=== PATIENT | female | born 1950 | race Caucasian/White ===

== ENCOUNTER → 2023-04-23 13:19 | Outpatient (REF) | payer MEDICARE, BC, SELFPAY ==
[2023-04-23 17:16] LABS: Free T4 1.26 ng/dl (0.78-2.19)
[2023-04-23 17:30] LABS: TSH 1.73 uIU/ml (0.47-4.68)
== END ==
LOC: HWLAB 13:19
PROVIDERS: ATTENDING PHYSICIAN Family Medicine
DX: E03.9 Hypothyroidism, unspecified (principal)
CPT/HCPCS: 36415; 84439; 84443

== ENCOUNTER → 2023-12-21 08:30 | Outpatient (REF) | payer MEDICARE, BC, SELFPAY ==
[2023-12-21 09:52] LABS: % Basophils 0.8 % (0-2); % Eosinophils 4.1 % (0-6); % Immature Granulocytes 0.2 % (0-0.5); % Lymphocytes 33.1 % (20.5-51.1); % Monocytes 10.4 % (1.7-9.3); % Neutrophils 51.4 % (42.2-75.2); Absolute Eosinophils 0.2 10^3/uL (0-0.7); Absolute Lymphocytes 1.6 10^3/uL (1.2-3.4); Absolute Monocytes 0.5 10^3/uL (0.1-0.6); Absolute Neutrophils 2.5 10^3/uL (1.4-6.5); Hematocrit 41.5 % (37.0-47.0); Hemoglobin 13.8 g/dL (12.0-16.0); Mean Corp Hgb Conc. 33.3 g/dL (33.0-37.0); Mean Corpuscular Volume 90.2 fL (81.0-99.0); Nucleated Red Blood Cells % 0 %; Platelet Count 244 10^3/uL (130-400); Red Cell Dist. Width 13.2 % (11.5-14.5); White Blood Cell Count 4.9 10^3/uL (4.8-10.8)
[2023-12-21 10:26] LABS: Urine Albumin Negative (Neg - Trace); Urine Bilirubin Negative (Negative); Urine Character Clear (Clear); Urine Color Yellow; Urine Glucose Negative (Negative); Urine Ketone Negative (Negative); Urine Leukocyte 1+ (Negative); Urine Nitrite Negative (Negative); Urine Occult Blood Negative (Negative); Urine Urobilinogen Negative (Neg - 1+)
[2023-12-21 10:40] LABS: ALT (SGPT) 22 U/L (0-35); AST (SGOT) 24 U/L (14-36); Albumin 4.1 g/dl (3.5-5.0); Alkaline Phosphatase 40 U/L (38-126); Blood Urea Nitrogen 26 mg/dl (7-17); Calcium 9.4 mg/dl (8.4-10.2); Carbon Dioxide 30 mmol/L (22-30); Chloride 103 mmol/L (98-107); Glucose 87 mg/dl (70-99); HDL Cholesterol 77 mg/dl; LDL Cholesterol, Calculated 136 mg/dl; Potassium 4.6 mmol/L (3.5-5.1); Sodium 142 mmol/L (135-145); Total Bilirubin 0.5 mg/dl (0.2-1.3); Total Cholesterol 230 mg/dl (50-199); Total Protein 6.7 g/dl (6.3-8.2); Triglyceride 88 mg/dl (10-149); Very Low Density Lipoprotein 17 mg/dl (0-30); eGFR > 60.00
[2023-12-21 10:51] LABS: Urine Urothelial Cell 0-2 /LPF (FEW)
[2023-12-21 10:52] LABS: Urine Bacteria Few (Negative)
[2023-12-21 10:58] LABS: Free T4 1.28 ng/dl (0.78-2.19); Vitamin D, 25-OH*** 62.8 ng/mL (30-80)
[2023-12-21 11:11] LABS: TSH 0.82 uIU/ml (0.47-4.68)
== END ==
LOC: HWLAB 08:30
PROVIDERS: ATTENDING PHYSICIAN Family Medicine
DX: Z00.00 Encounter for general adult medical examination without abnormal findings (principal); Z79.899 Other long term (current) drug therapy; R79.9 Abnormal finding of blood chemistry, unspecified; E03.9 Hypothyroidism, unspecified; R82.90 Unspecified abnormal findings in urine; Z87.440 Personal history of urinary (tract) infections; E78.00 Pure hypercholesterolemia, unspecified
CPT/HCPCS: 36415; 80053; 80061; 81003; 81015; 82306; 84439; 84443; 85025

== ENCOUNTER → 2023-12-24 12:53 | Outpatient (REF) | payer MEDICARE, BC, SELFPAY | LOC: WDC 12:53 | PROVIDERS: ATTENDING PHYSICIAN Obstetrics & Gynecology Gynecology; FAMILY PHYSICIAN Family Medicine | DX: Z12.31 Encounter for screening mammogram for malignant neoplasm of breast (principal) | CPT/HCPCS: 77063; 77067 ==

== ENCOUNTER → 2024-03-16 09:54 | Outpatient (REF) | payer MEDICARE, BC, SELFPAY | LOC: HWRAD 09:54 | PROVIDERS: ATTENDING PHYSICIAN Nurse Practitioner Family | DX: R51.9 Headache, unspecified (principal) | CPT/HCPCS: 70450 ==

== ENCOUNTER → 2024-04-01 11:21 | Outpatient (REF) | payer MEDICARE, BC, SELFPAY | LOC: RAD 11:21 | PROVIDERS: ATTENDING PHYSICIAN Family Medicine | DX: M48.061 Spinal stenosis, lumbar region without neurogenic claudication (principal); M81.0 Age-related osteoporosis without current pathological fracture | CPT/HCPCS: 77080 ==

== ENCOUNTER 2024-08-17 07:33 | Outpatient (RCR) | payer MEDICARE, BC, SELFPAY | END 2024-08-17 23:59 | disposition home or self-care (01) | LOC: RPT 07:33 | PROVIDERS: ATTENDING PHYSICIAN Nurse Practitioner Adult Health; FAMILY PHYSICIAN Family Medicine | DX: N39.3 Stress incontinence (female) (male) (principal); Z73.6 Limitation of activities due to disability; M62.838 Other muscle spasm; M62.81 Muscle weakness (generalized) | CPT/HCPCS: 97161; 97530 ==

== ENCOUNTER → 2024-08-24 09:23 | Outpatient (REF) | payer MEDICARE, BC, SELFPAY ==
[2024-08-24 12:42] LABS: ALT (SGPT) 22 U/L (0-35); AST (SGOT) 20 U/L (14-36); Albumin 4.0 g/dl (3.5-5.0); Alkaline Phosphatase 46 U/L (38-126); Blood Urea Nitrogen 21 mg/dl (7-17); Calcium 9.0 mg/dl (8.4-10.2); Carbon Dioxide 27 mmol/L (22-30); Chloride 106 mmol/L (98-107); Glucose 87 mg/dl (70-99); Potassium 4.5 mmol/L (3.5-5.1); Sodium 141 mmol/L (135-145); Total Protein 6.5 g/dl (6.3-8.2); eGFR > 60.00
[2024-08-24 13:04] LABS: Hematocrit 42.6 % (37.0-47.0); Hemoglobin 14.3 g/dL (12.0-16.0); Mean Corp Hgb Conc. 33.6 g/dL (33.0-37.0); Mean Corpuscular Volume 90.4 fL (81.0-99.0); Nucleated Red Blood Cells % 0 %; Platelet Count 213 10^3/uL (130-400); Red Cell Dist. Width 13.0 % (11.5-14.5)
== END ==
LOC: HWLAB 09:23
PROVIDERS: ATTENDING PHYSICIAN Internal Medicine Transplant Hepatology; FAMILY PHYSICIAN Family Medicine
DX: K76.0 Fatty (change of) liver, not elsewhere classified (principal)
CPT/HCPCS: 36415; 80053; 85025

== ENCOUNTER 2024-09-05 13:09 | Outpatient (RCR) | payer MEDICARE, BC, SELFPAY | END 2024-09-05 23:59 | disposition home or self-care (01) | LOC: RPT 13:09 | PROVIDERS: ATTENDING PHYSICIAN Nurse Practitioner Adult Health; FAMILY PHYSICIAN Family Medicine | DX: N39.3 Stress incontinence (female) (male) (principal); Z73.6 Limitation of activities due to disability; M62.838 Other muscle spasm; M62.81 Muscle weakness (generalized) | CPT/HCPCS: 97110 ==

== ENCOUNTER 2024-09-23 09:09 | Outpatient (RCR) | payer MEDICARE, BC, SELFPAY | END 2024-09-23 23:59 | disposition home or self-care (01) | LOC: RPT 09:09 | PROVIDERS: ATTENDING PHYSICIAN Nurse Practitioner Adult Health; FAMILY PHYSICIAN Family Medicine | DX: N39.3 Stress incontinence (female) (male) (principal); Z73.6 Limitation of activities due to disability; M62.838 Other muscle spasm; M62.81 Muscle weakness (generalized) | CPT/HCPCS: 97110; 97112; 97530 ==

== ENCOUNTER → 2024-11-03 11:22 | Outpatient (REF) | payer MEDICARE, BC, SELFPAY ==
[2024-11-03 16:14] LABS: Urine Character Clear (Clear)
[2024-11-03 16:26] LABS: Urine White Cell 60-70 /HPF (0-5)
== END ==
LOC: HWLAB 11:22
PROVIDERS: ATTENDING PHYSICIAN Family Medicine
DX: N39.0 Urinary tract infection, site not specified (principal); R35.0 Frequency of micturition
CPT/HCPCS: 81003; 81015; 87077; 87086; 87186

== ENCOUNTER → 2024-12-26 13:28 | Outpatient (REF) | payer MEDICARE, BC, SELFPAY ==
[2024-12-26 15:11] LABS: Urine Character Cloudy (Clear)
[2024-12-26 15:24] LABS: Urine Red Blood Cell 16-20 /HPF (0-2); Urine Squamous Cell 0-2 /LPF (Few)
[2024-12-26 15:25] LABS: Urine White Cell >100 /HPF (0-5)
== END ==
LOC: HWLAB 13:28
PROVIDERS: ATTENDING PHYSICIAN Family Medicine
DX: N39.0 Urinary tract infection, site not specified (principal)
CPT/HCPCS: 81003; 81015; 87077; 87086; 87186

== ENCOUNTER → 2024-12-28 11:28 | Outpatient (REF) | payer MEDICARE, BC, SELFPAY | LOC: WDC 11:28 | PROVIDERS: ATTENDING PHYSICIAN Obstetrics & Gynecology Gynecology; FAMILY PHYSICIAN Family Medicine | DX: Z12.31 Encounter for screening mammogram for malignant neoplasm of breast (principal) | CPT/HCPCS: 77063; 77067 ==

== ENCOUNTER → 2025-01-16 09:46 | Outpatient (REF) | payer MEDICARE, BC, SELFPAY ==
[2025-01-16 11:30] LABS: Hematocrit 42.8 % (37.0-47.0); Hemoglobin 14.1 g/dL (12.0-16.0); Mean Corp Hgb Conc. 32.9 g/dL (33.0-37.0); Mean Corpuscular Volume 92.4 fL (81.0-99.0); Nucleated Red Blood Cells % 0 %; Platelet Count 271 10^3/uL (130-400); Red Cell Dist. Width 13.3 % (11.5-14.5)
[2025-01-16 11:44] LABS: Urine Character Clear (Clear)
[2025-01-16 12:00] LABS: ALT (SGPT) 25 U/L (0-35); AST (SGOT) 32 U/L (14-36); Albumin 4.1 g/dl (3.5-5.0); Alkaline Phosphatase 47 U/L (38-126); Blood Urea Nitrogen 17 mg/dl (7-17); Calcium 9.1 mg/dl (8.4-10.2); Carbon Dioxide 30 mmol/L (22-30); Chloride 106 mmol/L (98-107); Glucose 82 mg/dl (70-99); HDL Cholesterol 63 mg/dl; LDL Cholesterol, Calculated 131 mg/dl; Potassium 4.6 mmol/L (3.5-5.1); Sodium 138 mmol/L (135-145); Total Protein 6.8 g/dl (6.3-8.2); Very Low Density Lipoprotein 21 mg/dl (0-30); eGFR > 60.00
[2025-01-16 12:10] LABS: Glycohemoglobin (HgbA1c) 5.6 % (4.0-5.9)
[2025-01-16 12:21] LABS: Urine Red Blood Cell 0-2 /HPF (0-2)
[2025-01-16 12:29] LABS: TSH 1.91 uIU/ml (0.47-4.68)
== END ==
LOC: REG 09:46
PROVIDERS: ATTENDING PHYSICIAN Family Medicine
DX: N39.0 Urinary tract infection, site not specified (principal); E03.9 Hypothyroidism, unspecified; K21.9 Gastro-esophageal reflux disease without esophagitis; K76.0 Fatty (change of) liver, not elsewhere classified; E78.00 Pure hypercholesterolemia, unspecified; R73.03 Prediabetes
CPT/HCPCS: 36415; 80053; 80061; 81003; 81015; 83036; 84439; 84443; 85025

== ENCOUNTER 2025-01-17 22:43 | Emergency (ER) | payer MEDICARE, BC, SELFPAY ==
[2025-01-17 22:54] VITALS: BP 181/86
[2025-01-17 23:20] LABS: Hematocrit 41.3 % (37.0-47.0); Hemoglobin 13.5 g/dL (12.0-16.0); Mean Corp Hgb Conc. 32.7 g/dL (33.0-37.0); Mean Corpuscular Volume 92.4 fL (81.0-99.0); Nucleated Red Blood Cells % 0 %; Platelet Count 244 10^3/uL (130-400); Red Cell Dist. Width 13.2 % (11.5-14.5)
[2025-01-17 23:37] LABS: ALT (SGPT) 29 U/L (0-35); AST (SGOT) 36 U/L (14-36); Albumin 4.0 g/dl (3.5-5.0); Alkaline Phosphatase 45 U/L (38-126); Blood Urea Nitrogen 24 mg/dl (7-17); Calcium 8.9 mg/dl (8.4-10.2); Carbon Dioxide 28 mmol/L (22-30); Chloride 105 mmol/L (98-107); Glucose 97 mg/dl (70-99); Potassium 4.1 mmol/L (3.5-5.1); Sodium 138 mmol/L (135-145); Total Protein 6.6 g/dl (6.3-8.2); eGFR > 60.00
[2025-01-17 23:39] VITALS: BP 156/64
[2025-01-17 23:46] LABS: Troponin I < 0.012 ng/ml
[2025-01-18] VITALS: BP 143/68
[2025-01-18 01:00] VITALS: BP 143/75
[2025-01-18 02:05] VITALS: BP 142/59
--- NOTE | 2025-01-18 02:11 | ED.GENMED ---
History of Present Illness
General
Chief Complaint: Blood Pressure Problem
Source: patient and spouse
Exam Limitations: none
Time Seen by Provider: 01/18/25 00:38
Nursing documentation reviewed up to this point in time: agreed with
History of Present Illness
History of Present Illness:
Patient presents to ED secondary to persistent hypertension along with achy feeling in the back of her head over the past 2 days. Patient was evaluated at PCPs office last week for annual physical exam. During the office visit, patient's blood
pressure was noted to be mildly elevated. Patient was advised to keep checking her blood pressure at home by her primary care physician. Patient does not have a history of hypertension. Over the past 3 days, whenever her blood pressure was
checked, it was noted to be elevated, with systolic blood pressure greater than 170. Denies dizziness. Denies chest pain or shortness of breath. Denies diaphoresis. Denies blurred vision. Denies loss of sensation or weakness. Denies recent
change in medications or diet. Patient does state that she is under significant stress at home. Denies recent weight changes.
Past History
Past History
ED Past Medical History: Cancer
ED Past Surgical History: Gynecological
Social History
Personal:
Review of Systems
Review of Systems
Allergies reviewed?: Yes
All Other Systems: ROS reviewed and negative except as documented in HPI and ROS
Constitutional: Reports no symptoms
EENT: Reports no symptoms
Respiratory: Denies trouble breathing
Cardiac: Reports no symptoms; Denies chest pain or diaphoresis
ABD/GI: Reports no symptoms; Denies nausea or vomiting
Musculoskeletal: Reports no symptoms
Skin: Reports no symptoms
Neurological: Reports headache; Denies dizzy or weakness
Phy Exam
Physical Exam
Physical Exam:
Physical Exam
General: no apparent distress, not acutely ill. afebrile
Head: nc/at. eomi
Neck: supple. no meningeal signs.
Heart: s1/s2 regular rate and rhythm
Lungs: no acute respiratory distress. clear bilaterally
Abdomen: normal bowel sounds. not tender.
Neuro: alert and oriented x 3. no focal neurological deficits
Skin: no rash
Psychiatric: well kept. interactive and cooperative
Extremities: no edema. no calf tenderness.
Course
Orders/Labs/Results
Orders:
Orders
01/17/25 23:02
Electrocardiogram (*1) Urgent
Reason for Study: Hypertension, Benign
Cardiology Consult: Unknown
EKG- Treatment ONCE
01/17/25 23:14
Complete Blood Count/With Diff Urgent
Comprehensive Metabolic Panel Urgent
Troponin I Urgent
01/18/25 01:24
CT Head W/o Iv Contrast Urgent
Comment:
Reason For Exam: headache with hypertension
Abnormal Lab Results
01/17/25
23:14
MCHC 32.7 L g/dL
(33.0-37.0)
Absolute Monos (auto) 0.7 H 10^3/uL
(0.1-0.6)
Monocytes % 12.4 H %
(1.7-9.3)
Eosinophils % 7.0 H %
(0-6)
BUN 24 H mg/dl
(7-17)
01/17/25 23:14
01/17/25 23:14
Vital Signs
Initial and Last Documented VS:
Initial Vital Signs
Temp Pulse Resp BP Pulse Ox
97.6 F 69 20 181/86 99
01/17/25 22:54 01/17/25 22:54 01/17/25 22:54 01/17/25 22:54 01/17/25 22:54
Last Documented Vital Signs
Temp Pulse Resp BP Pulse Ox
97.6 F 59 22 142/59 95
01/17/25 22:54 01/18/25 01:35 01/18/25 01:35 01/18/25 02:05 01/18/25 02:11
MDM/Problems Addressed
MDM/Problems Addressed:
Patient with an unremarkable workup in ED, including blood work and CT head. Initial mild hypertension improved during observation without treatment. Discussed treatment options with patient, including initiation of antihypertensive medication.
At this time, patient will keep daily log of her blood pressure, but requesting prescription for low-dose of blood pressure medication, just in case her blood pressure remains elevated at home, which I thought was reasonable. As such, prescription
for 2.5 mg amlodipine was prescribed for patient prior to discharge. Patient will continue to keep daily log of blood blood pressure and for will follow-up with her PCP in 1 to 2 weeks for reevaluation.
*Pulse Oximetry
SaO2: 95
Oxygen Mode of Delivery: Room air
Patient hypoxic: no
*Critical Care Note
Total Time (30-74mins, 75-104mins- exclusive of procedures): Not Applicable
ED Attending Note
-
Portions of this chart may have been created with voice recognition software.� Occasional wrong word or��sound alike� substitutions may have occurred due to the inherent limitations of voice recognition software.
Discharge Plan
Departure
Patient Disposition: Home (Routine Discharge)
Date of Disposition: 01/18/25
Time of Disposition: 02:11
Patient with high blood pressure during this ER visit?: Yes
Condition: Good
Discharge Problem:
Hypertension
Instructions: High Blood Pressure (DC)
Prescriptions:
New
amlodipine [Norvasc] 2.5 mg tablet
2.5 mg PO DAILY Qty: 30 0RF
No Action
levothyroxine [Synthroid] 88 mcg Tablet
88 mcg PO DAILY
Vitamin D (with calcium)
1 tab PO DAILY
Referrals:
Karen Garcia DO [Family Provider, Family Practice]
Activity Restrictions/Additional Instructions:
As discussed, please follow-up with your primary care doctor for reevaluation in 1 to 2 weeks.
Interventions
Interventions:
*Risk Screen - Suicide Last Done: 01/17/25 22:54
*General Assessment Last Done: 01/17/25 22:54
*Neglect/Abuse Screening Last Done: 01/17/25 22:54
*ED- Fall Risk Assessment Last Done: 01/17/25 22:54
*ED COVID-19 Vaccine History Last Done: 01/17/25 22:54
*ED Influenza Vaccine History Last Done: 01/17/25 22:54
*Nursing Disposition Last Done: 01/18/25 02:17
ED- Cardiac Assessment Last Done: 01/17/25 23:42
ED- Neurological Assessment Last Done: 01/17/25 23:42
ED- Pulmonary Assessment Last Done: 01/17/25 23:42
Discharge Date and Time
Discharge Date/Time: 01/18/25 02:17
Print Language: JAPANESE
== END 2025-01-18 02:17 | disposition home or self-care (01) ==
LOC: EMR 22:43
PROVIDERS: Student in an Organized Health Care Education/Training Program; EMERGENCY PHYSICIAN Emergency Medicine; FAMILY PHYSICIAN Family Medicine
DX: I10 Essential (primary) hypertension (principal)
CPT/HCPCS: 99284; 70450; 80053; 84484; 85025; 93005